=== PATIENT | female | born 1950 | race Caucasian/White ===

== ENCOUNTER 2017-09-15 10:45 | Inpatient (IN) | payer MEDICARE, OTHER ==
[~2017-09-15] VITALS: Ht 167.6 cm; Wt 125.2 kg
[~2017-09-15 10:45] MED LIST: ALPRAZOLAM; ANTIFUNGAL PO; ASPIRIN81 M2 PO; BENADRYL25 MG PO; BUMETANIDE 1 MG1 M1 PO; BUMEX2 MG; CENTRUM SILVER1 EAC4; CO Q-10100 MG; DESIPRAMINE 2525 M1 PO; HUMALOG100 UNIT/1 SQ; HUMALOG100 UNIT/1 SUBQ; IBUPROFEN 800800 MG PO; LANTUS SC; LANTUS SUBQ; PERCOCET 5-3251 EACH PO; PHENERGAN; PHENERGAN 25 MG25 M1 PO; POTASSIUM; UNKNOWN DIURETIC; VITAMINC500; XANAX 0.25 MG0.25 MG PO
[2017-09-15 10:46] VITALS: BP 184/69
[2017-09-15] MEDS ORDERED: XANAX 0.25 MG0.25 MG PO (10:55)
[2017-09-15] MEDS ORDERED: ZOLOFT25 MG (10:55)
--- NOTE | 2017-09-15 11:30 | NUR ---
PT YELLING AT RN, DENIES BEING SUICIDAL CURRENTLY. SON ESCORTED OFF PROPERTY BY MUSSEL OPENER FOR BELIGERANT BEHAVIOR. USING FOUL LANGUAGE W/ RN. EXPLAINED TO PT THAT FOUL LANGUAGE AND YELLING AT NURSE IS NOT ACCEPTABLE BEHAVIOR AND THAT RN IS HERE TO TAKE CARE OF HER HEALTH CARE NEEDS. DR. MCNALLY AT BEDSIDE. PT COMPLAINED THAT HER MEDICAL NEEDS WERE NOT BEING ADDRESSED, "EVERYBODY JUST THINKS I AM CRAZY. THE [place]. I SHOULD HAVE GONE TO A DIFFERENT TOWN." DR. MCNALLY EXPLAINED TO PT THAT SHE IS ADDRESSING HER MEDICAL NEEDS. RN EXPLAINED TO PT THAT THE STAFF IS KEEPING HER SAFE SINCE SHE HAS MADE SUICIDAL STATEMENTS.
--- NOTE | 2017-09-15 11:39 | NUR ---
PT IS ANGRY AT STAFF, CUSSING, PULLING OFF MONITORING EQUIPMENT. STATES SHE IS LEAVING THE HOSP, DENIES MAKING SUICIDAL STATEMENT DURING TRIAGE. WISHES TO SPEAK W/ SEARCH COORDINATOR. STUDENT FINANCIAL AID MANAGER NOTIFIED. REFUSES IV PLACEMENT. AGREES TO HAVING EKG.
[2017-09-15 11:50] LABS: ABSOLUTE BASOPHILS 0.1 thou/uL (0.0-0.2); ABSOLUTE LYMPHOCYTES 1.7 thou/uL (0.8-5.3); ABSOLUTE MONOCYTES 0.5 thou/uL (0.0-1.2); BASOPHILS 0.9 %; EOSINOPHILS 0.8 %; HEMATOCRIT 47.9 % (37.0-47.0); HEMOGLOBIN 16.3 gm/dL (12.0-15.0); LYMPHOCYTES 27.5 %; MCH 29.7 pg (26.0-34.0); MCV 87.1 fL (80.0-100.0); MONOCYTES 7.5 %; MPV 9.1 fl. (7.2-11.1); NUCLEATED RBCS 0 /100WBC; PLATELET COUNT* 188 thou/uL (150-400); POLYS 63.3 %; RBC 5.49 mil/uL (4.20-5.00); RDW-CV 14.4 % (10.5-14.5); WBC 6.3 thou/uL (4.0-11.0)
--- NOTE | 2017-09-15 12:12 | NUR ---
CARDIOLOGY PHYSICIAN Zacarias KELLY AT BEDSIDE TO SPEAK W/ PT. AT BEDSIDE.
[2017-09-15 12:15] LABS: ANION GAP 10 mmol/L (7-16); BUN 8 mg/dL (7-18); CALCIUM 9.5 mg/dL (8.5-10.1); CHLORIDE 103 mmol/L (98-107); CO2 25 mmol/L (21-32); CREATININE 0.8 mg/dL (0.6-1.3); GLUCOSE 209 mg/dL (70-99); POTASSIUM 3.7 mmol/L (3.5-5.1); SODIUM 138 mmol/L (136-145)
[2017-09-15 12:19] LABS: ALCOHOL < 10 mg/dL (<10); SALICYLATE < 2.8 mg/dL (2.8-20.0)
[2017-09-15 12:22] LABS: ALBUMIN 3.2 g/dL (3.4-5.0); ALKALINE PHOSPHATASE 154 U/L (46-116); SGOT 67 U/L (15-37); SGPT 58 U/L (30-65); TOTAL BILIRUBIN 1.1 mg/dL (<0.1-1.0); TOTAL PROTEIN 7.8 g/dL (6.4-8.2); TROPONIN-I LEVEL <0.06 ng/mL (<0.06)
--- NOTE | 2017-09-15 12:27 | NUR ---
PT WISHES TO HAVE A DIFFERENT NURSE. NSG CERTIFIED MEDICINE AIDE REMAINS IN E.D. TALKING W/ PT. PER NSG CERTIFIED MEDICINE AIDE, PT CARE HAS BEEN TRANSFERED TO ED JIMY ISBELL.
--- NOTE | 2017-09-15 13:30 | NUR ---
PT AGREED TO A STRAIGHT CATH TO GET A URIN SAMPLE. WHITNESSED BY AKILAH COLLINS RN.
[2017-09-15 13:59] LABS: URINE BILIRUBIN NEGATIVE (Negative); URINE BLOOD 3+ (Negative); URINE CLARITY CLEAR; URINE COLOR ORANGE; URINE GLUCOSE-RANDOM 1+ (Negative); URINE KETONES 2+ (Negative); URINE LEUKOCYTES-REFLEX NEGATIVE (Negative); URINE NITRITE-REFLEX NEGATIVE (Negative); URINE PROTEIN 1+ (Negative); URINE SPECIFIC GRAVITY 1.025 (1.005-1.030)
--- NOTE | 2017-09-15 14:00 | NUR ---
PT AGREED TO HAVING A JO CATH PLACED BECAUSE SHE STATED SHE COULD NOT URINATE TODAY.
[2017-09-15 14:13] LABS: AMP/METHAMP Negative (Negative); BARBITURATES Negative (Negative); BENZODIAZEPINES POSITIVE (Negative); COCAINE Negative (Negative); METHADONE Negative (Negative); OPIATES Negative (Negative); PCP Negative (Negative); THC Negative (Negative)
[2017-09-15 14:24] LABS: BACTERIA-REFLEX 1-9 Few /HPF (None Seen); CASTS None Seen /LPF (None Seen); CRYSTALS None Seen /LPF (None Seen); MUCUS None Seen strn/LPF (None Seen); SQUAMOUS 0-3 Few /LPF (0-3); URINE RBC >20 Many /HPF (0-2); URINE WBC-REFLEX 0-5 Rare /HPF (0-5)
--- NOTE | 2017-09-15 15:50 | EKG ---
[place] [address] ELECTROCARDIOGRAM REPORT Name: BEBETOHERNÁN Mar Room: [facility]#: [id number] Admission: 09/15/17 Attend Phys: Discharge: Date of : 46 Report #: [id number] THIS REPORT FOR: //name// [facility] ED Test Date: 2017-09-15 Test Time: 11:44:09 Pat Name: HERNÁN TATE Department: Room: Gender: [facility] Attendant: Sam MATIAS : 1950 Requested By: Holli Velásquez Order Number: [id number] MD: Flavio Braun Measurements Intervals [place] Rate: 96 P: 39 PA: 210 QRS: -16 QRSD: 95 T: 136 QT: 363 QTc: 459 Interpretive Statements Sinus rhythm Borderline prolonged PA interval LVH with secondary repolarization abnormality Anterior infarct, old Baseline wander in lead(s) V5,V6 Compared to ECG 04/25/2016 10:51:37 Myocardial infarct finding still present Electronically Signed On 09-15-2017 15:50:04 CDT by Flavio Braun [email or web address] <ELECTRONICALLY SIGNED> By: Flavio Braun MD, [facility] 09/15/17 1550 [id number] Flavio Braun MD, [facility] /EPI
--- NOTE | 2017-09-15 16:07 | NUR ---
NEW ALLERGIES ADDED FORM PROVIDER:CRISTY RASHEED ON 08/07/17
[2017-09-15] MEDS ORDERED: PEPCID20 MG PO (16:10)
[2017-09-15] MEDS ORDERED: FLEXERIL PO (16:11)
--- NOTE | 2017-09-15 19:13 | NUR ---
SI LIFTED PER DR. TOLBERT. REPORT GIVEN TO NURSE.
[2017-09-15 20:46] VITALS: BP 184/73
--- NOTE | 2017-09-15 20:48 | NUR ---
PT BELONGINGS HAVE BEEN RETURNED TO THE PT BY SECURITY.
[2017-09-15 21:05] VITALS: BP 155/56
--- NOTE | 2017-09-15 21:05 | NUR ---
PT ADMITTED TO FLOOR PER CART, ACCOMPANIED BY ER STAFF AND FAMILY. ORIENTED TO ROOM AND CALL LITE. HISTORY OBTAINED AND ASSESSMENT PERFORMED, SEE ADMIT NOTES. AOX4, CALM AND PLEASANT AT THIS TIME. DENIES SUICIDAL IDEATION,EXPRESSES FRUSTRATION AT THE "FUSS CAUSED DOWNSTAIRS BY ALL THAT." ABD FOLD PINK AND MOIST, CLEANSED AND PHOTO TAKEN. BUTTOCK PINK, GERARD CARE GIVEN AND BARRIER CREAM APPLIED. AREA OF [place] PT STATES TO UPPER BACK. PT STATES PAIN AND NAUSEA MILD AT THIS TIME AND SHE DOESNT NEED ANY MEDICATIONS. L HAND SL, TO BE PLACED ON PUMP FOR IVF INFUSION. SON AT BEDSIDE, WILL CONTINUE TO MONITOR AND PROVIDE CARES NEEDED. CALL LITE IN EASY REACH. BED ALARM ON FOR SAFETY. JO DRAINING DARK YELLOW URINE. O2 1.5L NC.
[2017-09-16 04:37] LABS: HEMATOCRIT 43.4 % (37.0-47.0); HEMOGLOBIN 14.6 gm/dL (12.0-15.0); MCH 29.7 pg (26.0-34.0); MCHC 33.7 g/dL (28.0-37.0); MCV 88.1 fL (80.0-100.0); MPV 9.4 fl. (7.2-11.1); RBC 4.92 mil/uL (4.20-5.00); RDW-CV 14.3 % (10.5-14.5); WBC 8.1 thou/uL (4.0-11.0)
[2017-09-16 04:55] LABS: ALBUMIN 2.6 g/dL (3.4-5.0); CALCIUM 8.3 mg/dL (8.5-10.1); CREATININE 0.7 mg/dL (0.6-1.3); MAGNESIUM 1.8 mg/dL (1.8-2.4); POTASSIUM 3.9 mmol/L (3.5-5.1); TOTAL BILIRUBIN 0.9 mg/dL (<0.1-1.0); TOTAL PROTEIN 6.1 g/dL (6.4-8.2)
--- NOTE | 2017-09-16 07:29 | NUR ---
NEW ADMIT LAST NIGHT. PT RECEIVED IV PHENERGAN AND LORAZEPAM AFTER ADMISSION WITH GOOD RESULT, SLEPT WELL OVERNIGHT. SON AT BEDSIDE. LHAND IVF INFUSING PER PUMP, ABX GIVEN ORDERED. JO DRAINING DARK YELLOW URINE. O2 1.5L. HS ACCUCHECK 228, INSULIN GIVEN. NPO. AM LAB DRAWN. GI AND SURGERY CONSULTED, TO SEE PT TODAY. PT TURNED AND REPOSITIONED Q2 HOURS AND PRN FOR SKIN CARE AND COMFORT, PT ABLE TO MOVE ABOUT IN BED INDEP.
[2017-09-16 08:00] VITALS: BP 136/60
--- NOTE | 2017-09-16 11:50 | NUR ---
INITIAL ASSESSMENT: Pt evaluated for d/c planning needs. Pt lives at home with spouse. Pt was independent with ADL's. Pt has walker, cane and electric w/c at home. Pt plans on returning home on d/c from hospital. Will remain available to assist as needed.
--- NOTE | 2017-09-16 14:29 | NUR ---
Nutrition: Consult received for "DM." Pt and family stated they are very familiar with DM/CHO counting. She stated semichele does low CHO diet, checks BG regularly. She has a small sore on bottom that she puts coconut oil on. Stated her BG usually runs 113-150s at home, but has been high lately d/t steroids. Currently, BG 168. Albumin 2.6. Takes insulin. Diet is advancing today. Pt hungry. She stated she has done a low fat diet for yrs d/t yaakov issues. Pt agreed to Ke powder for wound healing - RD ordered. Increased nutrient needs R/T wound healing AEB sores on bottom and on Lt foot. Mild risk. Will follow up per protocol.
[2017-09-16 16:00] VITALS: BP 125/56
--- NOTE | 2017-09-16 17:28 | NUR ---
PATIENT A&OX4, 1.5L O2 VIA NC. IV LEFT HAND FLUIDS INFUSSING. UP WITH ASSISTX1 WITH WALKER AND GAITBELT. C/O NAUSEA THIS A.M. RELEIF ONCE MEDICATION KICKED IN. NO C/O PIAN/V. STARTED ON CLR LIQUID DIET, TOLLERATING WELL. JO CATHETER DUE TO RETENTION, DARK YELLOW COLOR. INTERDRY TO ABD FOLDS, UNDER BREAST. NO OTHER CONCERNS AT THIS TIME. APPROPRIATE AND COOPORATIVE WITH CARE.
--- NOTE | 2017-09-16 18:37 | NUR ---
PATIENT A&OX4, 1.5L O2 VIA NC, IV LEFT HAND FLUIDS INFUSSING. UP WITH ASSISTX1 WITH WALKER AND GAITBELT. NO C/O PAIN/N/V. C/O NAUSEA AT SHIFT CHANGE, RELIEF WITH MEDICATION. TOLERATING CLR DIET, ADVANCED TO LOW FAT DIET, TOLERATING WELL. NO OTHER CONCERNS AT THIS TIME. APPROPRAITE AND COOPORATIVE WITH CARE.
[2017-09-16 23:03] VITALS: BP 129/51
[2017-09-17 03:54] LABS: HEMATOCRIT 41.8 % (37.0-47.0); HEMOGLOBIN 13.7 gm/dL (12.0-15.0); MCH 29.2 pg (26.0-34.0); MCHC 32.8 g/dL (28.0-37.0); MCV 89.2 fL (80.0-100.0); MPV 9.5 fl. (7.2-11.1); RBC 4.69 mil/uL (4.20-5.00); RDW-CV 14.5 % (10.5-14.5); WBC 6.7 thou/uL (4.0-11.0)
[2017-09-17 04:14] LABS: ALBUMIN 2.5 g/dL (3.4-5.0); CALCIUM 8.3 mg/dL (8.5-10.1); CREATININE 0.9 mg/dL (0.6-1.3); MAGNESIUM 1.7 mg/dL (1.8-2.4); PHOSPHORUS* 2.9 mg/dL (2.5-4.9); POTASSIUM 3.7 mmol/L (3.5-5.1); TOTAL BILIRUBIN 0.7 mg/dL (<0.1-1.0); TOTAL PROTEIN 6.4 g/dL (6.4-8.2)
--- NOTE | 2017-09-17 05:21 | NUR ---
ASSESSMENT COMPLETE. PT SLEPT GOOD THROUGH THE NIGHT. PT IS ON 2L PER NC WITH ADEQUATE SATS. DENIES PAIN AND N/V. PT HAS JO IN PLACE. IV FLUIDS INFUSING. PT IS UP ONE ASSIST WITH WALKER. PT IS FALL RISK, BED ALARM ON. PT DENIES ANY NEEDS AT THIS TIME. SEE ASSESSMENT AND VITALS FOR OTHER DETAILS. CALL LIGHT WITHIN REACH, WILL CONTINUE PLAN OF CARE
[2017-09-17 07:50] VITALS: BP 130/46
[2017-09-17] MEDS ORDERED: FLAGYL500 MG PO (07:59)
[2017-09-17] MEDS ORDERED: CIPRO500 MG PO (07:59)
[2017-09-17 11:39] VITALS: BP 130/46
--- NOTE | 2017-09-17 12:26 | NUR ---
PATIENT A&OX4, ROOM AIR, IV LEFT HAND FLUIDS INFUSSING, DISCONTINUED, CATHETER FULLY INTACT. UP WITH ASSISTX1 WITH GAITBELT AND WALKER, STEADY GAIT. JO DISCONTINUED, ABLE TO URINATE ON OWN. REDNESS UNDER BREAST AND ABDOMINAL FOLDS. REDNESS TO BOTTOM, INTERDRY PLACED AND BAREER CREAM APPLIED. DISCHARGED PATIENT, REVIEWED PAPERWORK WITH FAMILY AT BEDSIDE. VERBALIZES UNDERSTANDING. ALL QUESTIONS AND CONCERNS ANSWERED. PATEINT LEFT AT 1225 VIA W/C WITH NURSIND STAFF AND BELONGINGS. NO OTHER CONCENRS AT THIS TIME. APPROPRIATE AND COOPORATIVE WITH CARE.
--- NOTE | 2017-09-19 16:51 | CON ---
[address] [address] CONSULTATION Name: HERNÁN TATE Room: [address]#: [id number] Admission: 09/15/17 Attend Phys: Zack Prajapati MD Discharge: 09/17/17 Date of : 46 Report #: [id number] THIS REPORT FOR: //name// CC: Zack Partida DATE OF SERVICE: 09/16/2017 REASON FOR CONSULTATION: Dilated common bile duct and abdominal pain. HISTORY OF PRESENT ILLNESS: This is a 67-year-old female who was admitted to the hospital with tingling sensation in arms and legs. The patient also reports that she had some facial numbness in the right side. During her hospital visit, they obtained a CAT scan, which showed evidence of thickened gallbladder wall with some gallbladder sludge. The patient subsequently had a HIDA scan, which showed 51% ejection fraction. She is currently lying in bed, reporting that she has pain in the right upper quadrant and at times, the intensity increases. She denies any vomiting, but has had symptoms of nausea. The patient also has had history of colon polyps on upper endoscopy and colonoscopy by my partner, Dr. Castellano about 5 years ago. The patient was supposed to follow up, but she admits that she did not. PAST MEDICAL HISTORY: Significant for history of uterine cancer, status post hysterectomy, colon polyps, depression, hepatomegaly, large common bile duct, GERD, arthritis, dyslipidemia, and diabetes. ALLERGIES: Significant to CONTRAST DYE, MORPHINE, AMOXICILLIN, CEPHALOSPORINS, CLAVULANIC ACID, CLINDAMYCIN, PREDNISONE, MEPERIDINE, SERTRALINE, SULFAMETHOXAZOLE, and TRIAMTERENE. SOCIAL HISTORY: The patient denies tobacco or alcohol use. She lives at home. FAMILY HISTORY: Significant for gallbladder disease in both sons, but negative for colon cancer. LABORATORY DATA: Labs reveal sodium of 144, potassium 3.9, BUN is 8, creatinine 0.7, glucose is 143, AST is 139, ALT is 55, AST is 139. Lactic acid is 1.2. WBC is 8.1 with hemoglobin of 14.6 and platelets of 169. IMAGING: CT, abdominal ultrasound, and HIDA scan were reviewed. ASSESSMENT AND PLAN: The patient with what appears to be cholecystitis. We will allow her to eat at this time, as the patient [place] [address] CONSULTATION Name: HERNÁN TATE Room: [address]#: [id number] Admission: 09/15/17 Attend Phys: Zack Prajapati MD Discharge: 09/17/17 Date of : 46 Report #: [id number] as inpatient. In reference to her upper scope and colonoscope, we can do those as outpatient. <ELECTRONICALLY SIGNED> By: Harpal Cadet MD 09/19/17 1651 [id number] [id number] Cadet MD /billy
== END 2017-09-17 12:20 | disposition home or self-care (01) | DRG 445 ==
LOC: M.ERS 10:45 → M.TBA-ER 15:40 → M.3W 15:40
PROVIDERS: Personal Emergency Response Attendant; ADMIT Internal Medicine
DX: K81.0 Acute cholecystitis (principal); Z68.41 Body mass index [BMI] 40.0-44.9, adult; E66.01 Morbid (severe) obesity due to excess calories; E11.9 Type 2 diabetes mellitus without complications; F32.9 Major depressive disorder, single episode, unspecified; F41.9 Anxiety disorder, unspecified; K21.9 Gastro-esophageal reflux disease without esophagitis; I10 Essential (primary) hypertension; M19.90 Unspecified osteoarthritis, unspecified site; E78.5 Hyperlipidemia, unspecified; K75.81 Nonalcoholic steatohepatitis (NASH); Z88.2 Allergy status to sulfonamides; Z90.710 Acquired absence of both cervix and uterus; Z88.8 Allergy status to other drugs, medicaments and biological substances; Z88.6 Allergy status to analgesic agent; Z88.1 Allergy status to other antibiotic agents; Z91.041 Radiographic dye allergy status; Z79.2 Long term (current) use of antibiotics; Z79.4 Long term (current) use of insulin; Z79.899 Other long term (current) drug therapy; Z84.89 Family history of other specified conditions

== ENCOUNTER → 2020-06-20 | Outpatient (CLI) | payer OTHER ==
[~2020-06-20] MED LIST changes: +CIPRO500 MG PO; +FLAGYL500 MG PO; +FLEXERIL PO; +PEPCID20 MG PO; +ZOLOFT25 MG
== END ==
LOC: M.ULTRA 06-15 09:00
PROVIDERS: ATTEND Family Medicine
DX: R16.0 Hepatomegaly, not elsewhere classified (principal); K74.5 Biliary cirrhosis, unspecified